=== PATIENT | female | born 1960 | race Hispanic/Latino ===

== ENCOUNTER 2023-06-10 09:44 | Emergency (ER) | payer OTHER ==
[~2023-06-10] VITALS: Ht 160 cm; Wt 117.9 kg
[~2023-06-10 09:44] MED LIST: ATENOLOL100 MG PO; MELOXICAM7.5 MG PO
[2023-06-10 10:15] LABS: BASOPHILS # (AUTO) 0.1 (0.0-0.1); BASOPHILS % 1.1 % (0.0-1.0); EOSINOPHILS # (AUTO) 0.3 (0.0-0.4); EOSINOPHILS % 3.6 % (0.0-6.0); HEMATOCRIT 41.6 % (34.2-44.1); HEMOGLOBIN 13.2 g/dL (12.0-16.0); LYMPHOCYTES # (AUTO) 1.8 (1.0-3.2); MEAN CORPUSCULAR HEMOGLOBIN 28.3 pg (28-32); MEAN CORPUSCULAR HGB CONC 31.7 g/dL (31-35); MEAN CORPUSCULAR VOLUME 89.3 fL (81-99); MONOCYTES # (AUTO) 0.5 (0.2-0.8); MONOCYTES % 7.6 % (4.4-11.3); NEUTROPHILS # (AUTO) 4.3 (2.1-6.9); NEUTROPHILS % 61.6 % (38.7-80.0); PLATELET COUNT 222 x10e3/uL (140-360); RED BLOOD COUNT 4.66 x10e6/uL (3.6-5.1); RED CELL DISTRIBUTION WIDTH 12.4 % (11.7-14.4); WHITE BLOOD COUNT 6.97 x10e3/uL (4.8-10.8)
[2023-06-10 10:28] LABS: ALBUMIN 3.7 g/dL (3.5-5.0); BILIRUBIN,TOTAL 0.4 mg/dL (0.2-1.2); CALCIUM 9.2 mg/dL (8.4-10.2); CREATININE, SERUM 0.83 mg/dL (0.57-1.11); TOTAL PROTEIN 7.5 g/dL (6.5-8.1)
[2023-06-10 11:00] VITALS: O2SAT 96
[2023-06-10 11:09] LABS: LIPASE 24 U/L (8-78)
[2023-06-10 11:19] LABS: TROPONIN I < 0.05 ng/mL (0.0-0.40)
== END 2023-06-10 12:01 | disposition home or self-care (01) ==
LOC: ER 09:48
DX: R07.89 Other chest pain (principal); R42 Dizziness and giddiness; R11.0 Nausea; I10 Essential (primary) hypertension; E11.65 Type 2 diabetes mellitus with hyperglycemia; E78.5 Hyperlipidemia, unspecified; E03.9 Hypothyroidism, unspecified
CPT/HCPCS: 36415; 71045; 80053; 83690; 84484; 85025; 93005; 99283

== ENCOUNTER 2025-01-24 09:57 | Emergency (ER) | payer BC, OTHER ==
[~2025-01-24] VITALS: Ht 160 cm; Wt 108.9 kg
[2025-01-24 10:30] VITALS: TEMP 98.8
[2025-01-24] MEDS: SODIUM CHLORIDE 0.9% 1000ML 1,000 ML IV STA (10:40)
[2025-01-24 10:44] LABS: BASOPHILS % 0.3 % (0.0-1.0); EOSINOPHILS % 1.5 % (0.0-6.0); LYMPHOCYTES % 20.3 % (18.0-39.1); MONOCYTES % 6.5 % (4.4-11.3); NEUTROPHILS % 71.1 % (38.7-80.0); RED CELL DISTRIBUTION WIDTH 13.4 % (11.7-14.4)
[2025-01-24 11:01] LABS: INR 0.9
[2025-01-24 11:09] LABS: EST GLOMERULAR FILTRATION RATE 93.0 ML/MIN (>=60)
[2025-01-24] MEDS: KETOROLAC TROMETHAMINE 30 MG/ML VIAL IV STA (11:19)
[2025-01-24] MEDS: ONDANSETRON HCL INJ 2MG/ML 2ML 2 MG/ML VIAL IV STA (11:19)
[2025-01-24] MEDS: Morphine 4mg INJECTION 4 MG/ML INJ IV STA (11:20)
[2025-01-24 11:36] LABS: LEUKOCYTE ESTERASE ,URINE TRACE (NEGATIVE)
[2025-01-24 11:37] LABS: PROTEIN,URINE DIPSTICK NEGATIVE (NEGATIVE); URINE UROBILINOGEN 0.2 mg/dL (0.2 - 1)
[2025-01-24 11:40] LABS: EPITHELIAL CELLS,URINE FEW /LPF; WBC,URINE (MAN) 0-5 /HPF (0-5)
[2025-01-24] MEDS: BELLADONNA ALK/PHENOBARBITAL 5 ML UDC PO ONE (12:22)
[2025-01-24] MEDS: LIDOCAINE VISC 2% SOLN 15 ML UDC PO ONE (12:22)
[2025-01-24] MEDS: MAGNESIUM/ALUMINUM/SIMETHICONE 30 ML UDC PO ONE (12:22)
[2025-01-24] MEDS ORDERED: CEFDINIR300 MG PO (13:48)
[2025-01-24] MEDS ORDERED: ONDANSETRON ODT4 MG PO (13:48)
[2025-01-24 14:00] VITALS: PULSE 77; RESP 18
[2025-01-24 14:35] VITALS: BP 135/90; O2SAT 97
== END 2025-01-24 14:33 | disposition home or self-care (01) ==
LOC: ER 10:14
DX: R10.9 Unspecified abdominal pain (principal); N39.0 Urinary tract infection, site not specified; R11.2 Nausea with vomiting, unspecified; I10 Essential (primary) hypertension; E11.65 Type 2 diabetes mellitus with hyperglycemia; E78.5 Hyperlipidemia, unspecified; E03.9 Hypothyroidism, unspecified; Z98.0 Intestinal bypass and anastomosis status
CPT/HCPCS: 36415; 71045; 74176; 80053; 81001; 82948; 83690; 83735; 84484; 85025; 85610; 85730; 87086; 93005; 99283; J1885; J2270; J2405; J7030